=== PATIENT | female | born 1950 | race Caucasian/White ===

== ENCOUNTER 2021-02-19 16:10 | Emergency (ER) | payer MEDICARE, MEDICAID ==
[2021-02-19] MEDS ORDERED: traMADol HCl 50 MG TAB ONE (17:15)
== END 2021-02-19 19:28 ==
LOC: NAV ERS 16:10
DX: S52.502A Unspecified fracture of the lower end of left radius, initial encounter for closed fracture (principal); S40.022A Contusion of left upper arm, initial encounter; I10 Essential (primary) hypertension; Z79.899 Other long term (current) drug therapy; W18.30XA Fall on same level, unspecified, initial encounter
CPT/HCPCS: 99283

== ENCOUNTER 2021-08-05 07:32 | Emergency (ER) | payer MEDICARE, MEDICAID | END 2021-08-05 09:05 | disposition home or self-care (01) | LOC: NAV ERS 07:32 | DX: S40.021A Contusion of right upper arm, initial encounter (principal); G93.41 Metabolic encephalopathy; I25.10 Atherosclerotic heart disease of native coronary artery without angina pectoris; I11.0 Hypertensive heart disease with heart failure; I50.9 Heart failure, unspecified; E87.6 Hypokalemia; E78.5 Hyperlipidemia, unspecified; E87.1 Hypo-osmolality and hyponatremia; Z79.82 Long term (current) use of aspirin; Z79.899 Other long term (current) drug therapy; W18.30XA Fall on same level, unspecified, initial encounter | CPT/HCPCS: 99283 ==